=== PATIENT | male | born 1970 | race Caucasian/White ===

== ENCOUNTER 2016-08-17 17:28 | Emergency (ER) | payer SELFPAY ==
--- NOTE | ~2016-08-17 | CR72 ---
[facility] A Service of [facility] & [facility] RADIOLOGY TEXT RESULTS PATIENT: ANCA MELO LOCATION: [facility] : 66 UNIT #: [id number] AGE: [address]: Americo Solano MD SEX: M ORDER DR: [id number] [facility] [address] [place], [place] [address] [id number] E MR#: [id number] Acc #: [id number] NAME: ANCA MELO : 1970 SEX: M STUDY DATE/TIME: 08/17/2016 17:02 UNIT: [facility] ROOM: STUDY DESCRIPTION: CR Chest Single View Portable Attending Physician: Americo Solano M.D. Ordering Physician: Ed Doctor [id number] [facility] Primary Care Physician: Ivan Bauer M.D. MEDICAL IMAGING REPORT This report is preliminary unless electronic signature is present EXAM Portable chest HISTORY Cough, chest tightness, shortness of air for 6 days. FINDINGS Portable view of the chest demonstrates mild prominence of the pulmonary interstitium and mild prominence of the perihilar lung markings particularly along the right could represent some peribronchitis and perihilar infiltrate. No peripheral consolidation. No effusions. Heart, mediastinum unremarkable. No pneumothorax. Dictated by... Suzy Edwards M.D. THIS IS AN ELECTRONICALLY VERIFIED REPORT Suzy Edwards M.D. at 08/18/2016 6:31 PM DASIA/anamaria TD: 08/18/2016 06:42 JOB #: [id number] MEDICAL IMAGING REPORT COPY
[~2016-08-17 17:28] MED LIST: EXCEDRIN MIGRAI1 TA1 PO; PROTONIX PO
[2016-08-17 17:45] LABS: INFLUENZA A NEG (NEG); INFLUENZA B NEG (NEG)
== END 2016-08-17 17:59 | disposition home or self-care (01) ==
LOC: CED 17:28
PROVIDERS: Emergency Medicine
DX: J18.9 Pneumonia, unspecified organism (principal); Z88.0 Allergy status to penicillin
CPT/HCPCS: 71010; 87804; 94640; 99283